=== PATIENT | female | born 2005 | race Caucasian/White ===

== ENCOUNTER 2024-11-26 14:44 | Emergency (ER) | payer BC | END 2024-11-26 17:14 | disposition home or self-care (01) | LOC: JP.ED 14:44 | DX: S93.402A Sprain of unspecified ligament of left ankle, initial encounter (principal); Z91.041 Radiographic dye allergy status; X50.1XXA Overexertion from prolonged static or awkward postures, initial encounter; Y93.89 Activity, other specified | CPT/HCPCS: 73610-26-LT; 73610-LT; 99283 ==